=== PATIENT | male | born 1990 | race Caucasian/White ===

== ENCOUNTER 2016-07-26 13:54 | Emergency (ER) | payer SELFPAY ==
[~2016-07-26] VITALS: Ht 190.5 cm; Wt 109.0 kg
[2016-07-26 13:55] VITALS: BP 140/80; PULSE 106; RESP 20; TEMP 98.4; O2SAT 100
--- NOTE | 2016-07-26 15:22 | PD ---
HPI Chief Complaint: Laceration/Skin Injury Time Seen by Provider: 15:17 Travel History International Travel<30 days: No Contact w/Intl Traveler<30days: No Traveled to known affect area: No History of Present Illness HPI 25-year-old male here with complaint of laceration. Patient was working when a piece of metal sprung back at him, lacerating his right forearm. He notes a laceration to the volar aspect of the right forearm. Hemostatic. Unknown last tetanus. No numbness tingling or loss of function. PFSH Past Medical History Medical History: Denies Significant Hx Social History Alcohol Use: Yes (occ) Tobacco Use: Yes Substance Use: No Allergies-Medications (Allergen,Severity, Reaction): Coded Allergies: Biaxin (Verified Allergy, Mild, Hives, 07/26/16) Reported Meds & Prescriptions Reported Meds & Active Scripts Active No Active Prescriptions or Reported Medications Review of Systems Except as stated in HPI: all other systems reviewed are Neg Physical Exam Narrative GENERAL: Well-appearing male in no acute distress SKIN: Laceration on the right volar forearm, superficial and does not appear to involve tendon, muscle HEAD: Normocephalic. EYES: No scleral icterus. No injection or drainage. ENT: Mucous membranes pink and moist. CARDIOVASCULAR: Regular rate and rhythm. RESPIRATORY: No accessory muscle use. MUSCULOSKELETAL: 5 out of 5 strength in the right upper extremity without loss of function. NEUROLOGICAL: Awake and alert. Motor grossly within normal limits. Normal speech. PSYCHIATRIC: Appropriate mood and affect; insight and judgment normal. Data Data Last Documented VS Vital Signs Date Time Temp Pulse Resp B/P Pulse Ox O2 Delivery O2 Flow Rate FiO2 07/26/16 13:55 98.4 106 20 140/80 100 Room Air Orders Tetanus/Diphtheria Tox Adult (Tetanus/Di (07/26/16 15:30) MDM Medical Decision Making Medical Screen Exam Complete: Yes Emergency Medical Condition: Yes Medical Record Reviewed: Yes Differential Diagnosis 25-year-old male here with laceration to the right forearm. Exam is consistent with superficial laceration which will require repair. Narrative Course Patient given tetanus, laceration repair performed. Procedures Procedure Narrative LACERATION LOCATION: Right forearm LENGTH: 4 cm NUMBER OF STITCHES/DAVINA: 3 REPAIR: The area of the laceration was prepped with Betadine and sterilely draped. The wound was copiously irrigated and explored without evidence of foreign body, tendon injury or neurovascular injury. The wound was closed using davina. This was a single layer repair. A sterile dressing was applied. The patient was advised to keep the dressing clean and dry. Patient tolerated the procedure well. Diagnosis Primary Impression: Laceration of right forearm Qualified Code: S51.811A - Laceration of right forearm, initial encounter Referrals: Primary Care Physician 1 week Departure Forms: Tests/Procedures, Work Release Enter return to work date: Jul 26, 2016 Special Instructions: Patient may return to work with normal activities. Additional Instructions: Staple removal in 7-10 days. Med/Other Pt SpecificInfo: No Change to Meds Scripts No Active Prescriptions or Reported Meds Disposition: 01 DISCHARGE HOME Condition: Stable Anisa Quispe MD Jul 26, 2016 15:22
[2016-07-26] MEDS ORDERED: TETANUS/DIPHTHERIA TOXOID ADULT 0.5 ML VIAL IM ONE (15:30)
== END 2016-07-26 15:51 | disposition home or self-care (01) ==
LOC: NEPD 13:54
DX: S51.811A Laceration without foreign body of right forearm, initial encounter (principal); Z72.0 Tobacco use; W20.8XXA Other cause of strike by thrown, projected or falling object, initial encounter; Z23 Encounter for immunization
CPT/HCPCS: 12001; 90471; 90714

== ENCOUNTER 2016-08-05 07:51 | Emergency (ER) | payer SELFPAY ==
[~2016-08-05] VITALS: Ht 190.5 cm; Wt 108.0 kg
[2016-08-05 07:53] VITALS: BP 155/90; PULSE 66; RESP 16; TEMP 97.8; O2SAT 100
--- NOTE | 2016-08-05 08:09 | PD ---
HPI Chief Complaint: Wound/Suture/Staple Re-Check Time Seen by Provider: 08:07 Travel History International Travel<30 days: No Contact w/Intl Traveler<30days: No Traveled to known affect area: No History of Present Illness HPI 25-year-old female presents to the emergency department requesting staple removal from his right forearm. They've been in place for 10 days. Denies fever, chills, nausea, vomiting. Denies erythema, edema, drainage from the wound site. No other medical complaints. No other modifying factors or associated signs and symptoms. [facility] Social History Alcohol Use: Yes ([facility]) Tobacco Use: Yes Substance Use: No Allergies-Medications (Allergen,Severity, Reaction): Coded Allergies: Biaxin (Verified Allergy, Mild, Hives, 08/05/16) Reported Meds & Prescriptions Reported Meds & Active Scripts Active No Active Prescriptions or Reported Medications Review of Systems Except as stated in HPI: all other systems reviewed are Neg Physical Exam Narrative GENERAL: Well-nourished, well-developed male patient, in no acute distress SKIN: Warm and dry. Distal right forearm with bleeding that is well approximated and 2 davina intact; without erythema, edema, drainage. No signs of infection. HEAD: Atraumatic. Normocephalic. EYES: Pupils equal and round. No scleral icterus. No injection or drainage. ENT: Mucosa pink and moist. Airway patent. NECK: Trachea midline. CARDIOVASCULAR: Regular rate. RESPIRATORY: No accessory muscle use. GASTROINTESTINAL: Rounded. MUSCULOSKELETAL: No obvious deformities. No clubbing. No cyanosis. No edema. NEUROLOGICAL: Awake and alert. Oriented 3. No obvious cranial nerve deficits. Motor grossly within normal limits. Normal speech. PSYCHIATRIC: Appropriate mood and affect; insight and judgment normal. Data Data Last Documented VS Vital Signs Date Time Temp Pulse Resp B/P Pulse Ox O2 Delivery O2 Flow Rate FiO2 08/05/16 07:53 97.8 66 16 155/90 100 Room Air MDM Medical Decision Making Medical Screen Exam Complete: Yes Emergency Medical Condition: Yes Medical Record Reviewed: Yes Differential Diagnosis Staple removal, suture removal, wound recheck Narrative Course 25-year-old male presents for staple removal to his distal right forearm. Davina in place for 10 days. No signs of infection. Lawrence removed. Patient tolerated well. Patient verbalizes understanding and agreement with treatment plan. Patient is medically cleared and stable for discharge. Discussed reasons to return to the emergency department. Instructed patient to follow up with primary care provider. Patient agrees with treatment plan. The patients vital signs are stable and the patient is stable for outpatient follow- up and treatment. Patient discharged home, stable and in no acute distress. Diagnosis Primary Impression: Encounter for staple removal Referrals: Primary Care Physician Patient Instructions: Acute Wound Care (ED), General Instructions Departure Forms: Tests/Procedures, Work Release Enter return to work date: Aug 05, 2016 Additional Instructions: Follow-up with primary care provider Return to the emergency department immediately with worsening of symptoms Med/Other Pt SpecificInfo: No Change to Meds, No Meds Exist/No RX given Scripts No Active Prescriptions or Reported Meds Disposition: 01 DISCHARGE HOME Condition: Stable Fanta Small Aug 05, 2016 08:09
== END 2016-08-05 08:44 | disposition home or self-care (01) ==
LOC: NEPK 07:51
DX: S59.911D Unspecified injury of right forearm, subsequent encounter (principal); X58.XXXD Exposure to other specified factors, subsequent encounter; Z48.02 Encounter for removal of sutures
CPT/HCPCS: 99281